=== PATIENT | female | born 2000 | race Caucasian/White ===

== ENCOUNTER 2020-02-28 20:56 | Emergency (ER) | payer OTHER ==
[~2020-02-28] VITALS: Ht 165.1 cm; Wt 97.5 kg
[2020-02-28 22:11] LABS: ABSOLUTE BASOPHILS 0.1 thou/uL (0.0-0.2); ABSOLUTE EOSINOPHILS 0.2 thou/uL (0.0-0.7); ABSOLUTE LYMPHOCYTES 2.8 thou/uL (0.8-5.3); ABSOLUTE MONOCYTES 0.7 thou/uL (0.0-1.2); ABSOLUTE NEUTROPHILS 8.8 thou/uL (1.6-8.1); BASOPHILS 0.7 %; EOSINOPHILS 1.3 %; HEMATOCRIT 41.2 % (37.0-47.0); HEMOGLOBIN 14.1 gm/dL (12.0-15.0); LYMPHOCYTES 22.2 %; MCH 29.3 pg (26.0-34.0); MCHC 34.3 g/dL (28.0-37.0); MCV 85.4 fL (80.0-100.0); MPV 8.4 fl. (7.2-11.1); NUCLEATED RBCS 0 /100WBC; PLATELET COUNT* 310 thou/uL (150-400); POLYS 69.8 %; RBC 4.83 mil/uL (4.20-5.00); RDW-CV 13.2 % (10.5-14.5); WBC 12.5 thou/uL (4.0-11.0)
[2020-02-28 22:19] LABS: CALCIUM 9.4 mg/dL (8.5-10.1); CREATININE 1.1 mg/dL (0.6-1.3)
[2020-02-28 22:24] LABS: APTT 27.8 Seconds (25.0-31.3); TOTAL BILIRUBIN 0.5 mg/dL (<0.1-1.0); TOTAL PROTEIN 8.3 g/dL (6.4-8.2)
[2020-02-28 23:20] LABS: URINE BILIRUBIN NEGATIVE (Negative); URINE BLOOD NEGATIVE (Negative); URINE CLARITY CLEAR; URINE COLOR YELLOW; URINE GLUCOSE-RANDOM NEGATIVE (Negative); URINE KETONES TRACE (Negative); URINE LEUKOCYTES-REFLEX NEGATIVE (Negative); URINE NITRITE-REFLEX NEGATIVE (Negative); URINE PROTEIN NEGATIVE (Negative); URINE SPECIFIC GRAVITY >= 1.030 (1.005-1.030); URINE UROBILINOGEN 0.2 E.U./dl (0.2-1.0)
[2020-02-28] MEDS ORDERED: METOPROLOL TART25 MG PO (23:37)
[2020-02-29] VITALS: BP 132/70
--- NOTE | 2020-02-29 15:44 | EKG ---
[place] [address] ELECTROCARDIOGRAM REPORT Name: JOSIAHTIFFANY JEAN CARLOS Room: [facility]#: [id number] Admission: 02/28/20 Attend Phys: Discharge: 02/29/20 Date of : 89 Date of Service: 02/28/202110 Report #: [id number] THIS REPORT FOR: //name// [facility] ED Test Date: 2020-02-28 Test Time: 21:11:46 Pat Name: TIFFANY RAHMAN Department: Room: Gender: Regional Program Manager: : 2000 Requested By: Kim Aldrich Order Number: [id number] MD: Mahamed Dugan Measurements Intervals [place] Rate: 139 P: 67 IA: 130 QRS: 77 QRSD: 83 T: -39 QT: 293 QTc: 446 Interpretive Statements Sinus tachycardia Borderline T abnormalities, diffuse leads Baseline wander in lead(s) V3,V5 No previous ECG available for comparison Electronically Signed On 02-29-2020 15:43:59 CDT by Mahamed Dugan [email or web address] <ELECTRONICALLY SIGNED> By: Mahamed Dugan MD, FACC 02/29/20 1543 10 10 Mahamed Dugan MD, FAC /EPI
== END 2020-02-29 | disposition home or self-care (01) ==
LOC: M.ERS 20:56
PROVIDERS: Personal Emergency Response Attendant
DX: R00.0 Tachycardia, unspecified (principal); Z88.0 Allergy status to penicillin